=== PATIENT | male | born 1995 | race Caucasian/White ===

== ENCOUNTER 2024-09-20 13:52 | Emergency (ER) | payer OTHER ==
[~2024-09-20] VITALS: Ht 180.3 cm; Wt 81.2 kg
[2024-09-20] MEDS ORDERED: MOTR200T44 PO (14:25)
[2024-09-20] MEDS ORDERED: HOME MED LIST COMPLETE! XX SCH (15:50)
[2024-09-20 17:39] LABS: BASO # 0.0 10^3/uL (0.0-0.2); BASO % 0.3 % (0.0-1.0); EOS # 0.2 10^3/uL (0.0-0.5); EOS % 1.8 % (0.0-3.0); LYMPH # 2.8 10^3/uL (1.5-5.0); LYMPH % 24.3 % (24.0-44.0); MONO # 0.9 10^3/uL (0.0-0.8); MONO % 7.9 % (2.0-8.0); NEUTROPHILS # 7.5 10^3/uL (1.5-8.5); NEUTROPHILS % 65.4 % (36.0-66.0); PLATELET COUNT, AUTOMATED 261 10^3/uL (150-450)
[2024-09-20 18:08] LABS: ALT/SGPT 26.0 U/L (7.0-40); AST/SGOT 31.0 U/L (<34)
[2024-09-20 19:03] VITALS: BP 152/86; TEMP 96.5; O2SAT 99
== END 2024-09-20 19:12 | disposition home or self-care (01) ==
LOC: M ED 13:52
DX: K40.90 Unilateral inguinal hernia, without obstruction or gangrene, not specified as recurrent (principal); Z79.1 Long term (current) use of non-steroidal anti-inflammatories (NSAID)